=== PATIENT | male | born 1990 | race Caucasian/White ===

== ENCOUNTER 2022-07-22 14:47 | Emergency (ER) | payer MEDICAID, OTHER ==
[~2022-07-22] VITALS: Ht 167.6 cm; Wt 94.0 kg
[2022-07-22 15:12] VITALS: BP 132/83
[2022-07-22 15:18] LABS: COVID AG,FIA SOURCE NASAL SWAB
[2022-07-22 16:19] LABS: INFLUENZA TYPE A NEGATIVE FOR TYPE A (NEGATIVE); INFLUENZA TYPE B NEGATIVE FOR TYPE B (NEGATIVE)
[2022-07-22 16:25] LABS: RAPID GROUP A STREP NEGATIVE (NEGATIVE)
[2022-07-22] MEDS ORDERED: IBUP-1554 PO (17:30)
[2022-07-22] MEDS ORDERED: ACET-66 PO (17:30)
[2022-07-22] MEDS ORDERED: GUAIFDM PO (17:31)
== END 2022-07-22 18:02 | disposition home or self-care (01) ==
LOC: EMS 14:58
DX: J06.9 Acute upper respiratory infection, unspecified (principal); Z20.822 Contact with and (suspected) exposure to COVID-19
CPT/HCPCS: 87430; 87804; 99283